=== PATIENT | female | born 1970 ===

== ENCOUNTER 2022-05-04 13:29 | Emergency (ER) | payer OTHER, MEDICAID, SELFPAY ==
[2022-05-04] VITALS (12 sets, daily range): BP systolic 109–120; BP diastolic 59–77; PULSE 58–68; RESP 22; TEMP 36.3; O2SAT 96–100; BMI 21.7
--- NOTE | 2022-05-04 13:45 | DI.RAD.S_ITS ---
PROCEDURE: XR KNEE RT 1TO2V INDICATIONS: fall with pain/popping sensation TECHNIQUE: 2 views of the knee were acquired. COMPARISON: None. FINDINGS: Bones: Comminuted split fracture of the right tibia. Soft tissues: Small joint effusion. No suspicious soft tissue calcifications. IMPRESSION: Comminuted proximal right tibia fracture. Dictated by: Flores Brewer MD, PhD on 05/04/2022 at 14:34 Approved by: Flores Brewer MD, PhD on 05/04/2022 at 14:34
--- NOTE | 2022-05-04 14:22 | ED.LOWEXIN ---
HPI - Extremity Injury (Lower) General Chief Complaint: Extremity Injury, Lower Stated Complaint: Fell from 10ft ladder 1pm 05/04 Time Seen by Provider: 05/04/22 14:16 Source: patient Mode of arrival: Wheelchair Limitations: no limitations History of Present Illness HPI Narrative: 52-year-old female who is here for evaluation of a right knee injury. She was on a ladder changing a light bulb when she fell off the ladder. Initially stated that it was 10 ft. She is unsure exactly how she landed but she 1st landed on the couch and then onto the floor. She states that she had immediate pain in her right knee. No other injuries. Did not hit her head. No neck pain. No hip pain. She is not been ambulatory since the event. Her son carried her to her car and she arrived by private vehicle. She is not on blood thinners. Related Data Allergies Allergy/AdvReac Type Severity Reaction Status Date / Time Penicillins Allergy Anaphylaxis Verified 05/04/22 13:40 Review of Systems Review of Systems ROS Unobtainable: All systems reviewed & are unremarkable except as noted in HPI and below Patient History Medical History Healthy adult Social History Smoking Status: Current every day smoker Smoking Status: Current every day smoker tobacco type: vaping alcohol intake frequency: a few times a week Substance Use Type: does not use Exam Initial Vital Signs Initial Vital Signs: Vital Signs Temperature 97.4 F L 05/04/22 13:40 Pulse Rate 67 05/04/22 13:40 Respiratory Rate 22 05/04/22 13:40 Blood Pressure 109/59 L 05/04/22 13:40 Pulse Oximetry 99 05/04/22 13:40 Oxygen Delivery Method 05/04/22 13:40 Const General: cooperative and No ill appearing HENMT Head: normal to inspection and normocephalic Resp Effort & Inspection: normal respiratory effort Auscultation: clear to auscultation bilaterally Cardio Rate: regular rate Rhythm: regular rhythm Pulses: dorsalis pedis present on the right GI Inspection: normal to inspection Back/Spine/Pelvis Cervical Spine: No cervical muscular tenderness and No cervical spinal tenderness Thoracic/Lumbar Spine: No paraspinal tenderness, No thoracic spinal tenderness and No lumbar spinal tenderness Skin General: no rashes or lesions noted Neuro Sensory Exam: no sensory deficits noted Extrem General: No edema Other: Patient has swelling and discomfort to the right knee. Her right ankle is unremarkable. Pelvis is stable. No tenderness to the right hemipelvis. Bilateral upper extremities and left lower extremities unremarkable. Psych Appearance: grossly normal and well kempt Scores GCS [place] coma scale eye opening: Spontaneous [place] coma scale verbal response: Orientated [place] coma scale motor response: Obey commands [place] coma scale total score: 15 Nexus Score for C-Spine Focal Neurologic deficit present: No Midline spinal tenderness present: No Altered level of conciousness present: No Intoxication present: No Distracting Injury Present: No Nexus Criteria for C-spine: 0 Course Orders Ordered: ED Orders 05/04/22 13:45 XR knee RT 3V Stat 05/04/22 14:25 Basic Metabolic Panel Stat Complete Blood Count AUTO DIFF Stat 05/04/22 15:37 COVID19 -Nasal RAPID/Pre-Proc Stat Sodium Chloride (Normal Saline 0.9%) 1,000 mls @ 100 mls/hr IV CONT AUGUSTO Last Admin: 05/04/22 15:31 Dose: Not Given Documented By: CTS Discontinued Medications Hydromorphone HCl (Hydromorphone 1 Mg Inj) 1 mg IV NOW ONE Stop: 05/04/22 15:30 Last Admin: 05/04/22 15:32 Dose: 1 mg Documented By: CTS Vital Signs Vital signs: Vital Signs - 8 hr 05/04/22 13:40 05/04/22 14:57 05/04/22 14:57 Temperature 97.4 F L Pulse Rate 67 65 Respiratory Rate 22 Blood Pressure 109/59 L 119/77 Pulse Oximetry 99 98 Oxygen Delivery Method Room Air 05/04/22 15:00 05/04/22 15:30 05/04/22 16:00 Temperature Pulse Rate 68 67 63 Respiratory Rate Blood Pressure Pulse Oximetry 100 99 98 Oxygen Delivery Method 05/04/22 16:30 05/04/22 17:00 05/04/22 17:30 Temperature Pulse Rate 66 63 65 Respiratory Rate Blood Pressure Pulse Oximetry 100 99 100 Oxygen Delivery Method MDM - Extremity Injury (Lower) Lab Data Attestation: I reviewed the patient's lab results. Result diagrams: 05/04/22 14:25 05/04/22 14:25 Labs: Lab Results 05/04/22 05/04/22 05/04/22 Range/Units 14:25 14:25 15:37 WBC 7.5 (4.5-11.0) X10^3/uL RBC 4.41 (4.0-5.2) X10^6/uL Hgb 12.4 (12.0-16.0) g/dL Hct 37.5 (36-46) % MCV 85.1 (80-100) fL MCH 28.1 (26-34) PG MCHC 33.0 (30-36) % RDW 13.3 (11.6-14.8) % Plt Count 318 (150-400) X10^3/uL Neut % (Auto) 74.3 (50-75) % Lymph % (Auto) 16.9 L (25-40) % [place] % (Auto) 7.0 (3-14) % Eos % (Auto) 1.3 L (2-4) % Baso % (Auto) 0.5 (0-2) % Neut # (Auto) 5600 (4868-2456) /uL Lymph # (Auto) 1300 (7859-3941) /uL [place] # (Auto) 500 (0-900) /uL Eos # (Auto) 100 (0-450) /uL Baso # (Auto) 0 (0-100) /uL Sodium 138 (137-145) mmol/L Potassium 3.7 (3.4-5.1) mmol/L Chloride 103 (98-107) mmol/L Carbon Dioxide 24 (22-32) mmol/L BUN 19 H (7-17) mg/dL Creatinine 0.69 (0.52-1.04) mg/dL Estimated GFR > 60 (>60) mL/min BUN/Creatinine Ratio 27.5 H (6-22) Glucose 106 H (70-100) mg/dL Calcium 8.9 (8.4-10.2) mg/dL SARS-CoV-2 (PCR) Positive H (Negative) Imaging Data Chest x-ray: Radiologist's Impression: [address] [address] XRay Report Signed Patient: Shabnam Cintron MR#: [id number] : 1970 Acct:[id number] Age/Sex: 52 / F Date of Service: 05/04/22 Loc: ED Accession Number: [id number] ?? Procedure: XR knee RT 3V Ordering Provider: Eulogio Jacobson D.O. PROCEDURE:? XR KNEE RT 1TO2V ? INDICATIONS:? fall with pain/popping sensation ? TECHNIQUE:? 2 views of the knee were acquired.? ? COMPARISON:? None. ? FINDINGS:? ? Bones:? Comminuted split fracture of the right tibia. ? Soft tissues:? Small joint effusion.? No suspicious soft tissue calcifications.? ? ? IMPRESSION:? Comminuted proximal right tibia fracture. ? ? Dictated by: Flores Brewer MD, PhD on 05/04/2022 at 14:34 ? ? Approved by: Flores Brewer MD, PhD on 05/04/2022 at 14:34 MDM Narrative Medical decision making narrative: Neurovascularly intact. On exam she has no other injury except for her right knee. She reports no other pain except for the right knee. Has a comminuted right tibial plateau fracture. Discussed the case with Dr. Cagle who accepts the patient in transfer. Patient understands the need for transfer for evaluation by Orthopedic Trauma. Discharge Plan Departure Patient Disposition: [facility] Clinical Impression: Closed fracture of right tibial plateau
[2022-05-04 14:39] LABS: Add Manual Diff / Slide Review NO; Basophils Absolute Auto 0 /uL (0-100); Basophils Percent Auto 0.5 % (0-2); Eosinophils Absolute Auto 100 /uL (0-450); Eosinophils Percent Auto 1.3 % (2-4); Hematocrit 37.5 % (36-46); Hemoglobin 12.4 g/dL (12.0-16.0); Lymphocytes Absolute Auto 1300 /uL (1100-4500); Lymphocytes Percent Auto 16.9 % (25-40); Mean Corpuscular Hemoglobin 28.1 PG (26-34); Mean Corpuscular Volume 85.1 fL (80-100); Monocytes Absolute Auto 500 /uL (0-900); Neutrophils Absolute Auto 5600 /uL (1500-7000); Neutrophils Percent Auto 74.3 % (50-75); Platelet Count 318 X10^3/uL (150-400); Red Blood Cell Count 4.41 X10^6/uL (4.0-5.2); Red Cell Distribution Width 13.3 % (11.6-14.8); White Blood Cell Count 7.5 X10^3/uL (4.5-11.0)
[2022-05-04 14:50] LABS: BUN Creatinine Ratio 27.5 (6-22); Blood Urea Nitrogen 19 mg/dL (7-17); Calcium 8.9 mg/dL (8.4-10.2); Carbon Dioxide 24 mmol/L (22-32); Chloride 103 mmol/L (98-107); Estimated Glomerular Filt Rate > 60 mL/min (>60); Glucose 106 mg/dL (70-100); HEMOLYSIS < 15 (0-50); Potassium 3.7 mmol/L (3.4-5.1); Sodium 138 mmol/L (137-145)
[2022-05-04] MEDS: HYDROMORPHONE 1 MG INJ IV ×2 (15:32→18:41)
[2022-05-04 15:56] LABS: COVID19 -Nasal RAPID POSITIVE (Negative)
== END 2022-05-04 19:15 | disposition short-term general hospital (02) ==
PROVIDERS: Emergency Provider Emergency Medicine
DX: S82.141A Displaced bicondylar fracture of right tibia, initial encounter for closed fracture (principal); W11.XXXA Fall on and from ladder, initial encounter; U07.1 COVID-19
CPT/HCPCS: 36415; 73562; 80048; 85025; 87635; 96374; 96376; 99284; C9803; J1170